=== PATIENT | male | born 1945 | race Caucasian/White ===

== ENCOUNTER 2018-11-29 07:26 | Day surgery (SDC) | payer MEDICARE, OTHER ==
[2018-11-26 13:56] LABS: EOSINOPHILS % (AUTO) 3.6 % (0.0-8.0); HEMATOCRIT 42.5 % (42-54); LYMPHOCYTES % (AUTO) 32.1 % (21.0-51.0); MEAN CORPUSCULAR HGB CONC 33.2 g/dL (32.0-36.0); MEAN CORPUSCULAR VOLUME 96.4 fL (79-99); MONOCYTES % (AUTO) 10.5 % (3.0-13.0); NEUTROPHILS % (AUTO) 52.8 % (40.0-77.0); NUCLEATED RED BLOOD CELLS 0.1 % (0.0-0.19); PLATELET COUNT (AUTO) 217 K/uL (130-400); RED BLOOD CELL COUNT(AUTO) 4.41 MIL/uL (4.50-6.20); WHITE BLOOD COUNT (AUTO) 8.3 K/uL (4.8-10.8)
[2018-11-26 14:08] LABS: POTASSIUM 3.9 mmol/L (3.5-5.1)
[2018-11-26 14:09] LABS: PARTIAL THROMBOPLASTIN TIME 26.7 SEC (26.3-35.5); PROTHROMBIN TIME 10.5 SEC (9.6-11.6)
[2018-11-26 15:01] LABS: BILIRUBIN,URINE Negative (NEGATIVE); COLOR,URINE Yellow (YELLOW); GLUCOSE, URINE (UA) Negative (NEGATIVE); KETONES,URINE Negative (NEGATIVE); LEUKOCYTE ESTERASE ,URINE Negative (NEGATIVE); NITRATE,URINE Negative (NEGATIVE); OCCULT BLOOD,URINE Negative (NEGATIVE); PH,URINE 6.5 (5.0-8.0); PROTEIN,URINE Negative (NEGATIVE); UROBILINOGEN,URINE 0.2 mg/dL (0.2-1.0)
[2018-11-26 15:12] LABS: APPEARANCE,URINE CLEAR (CLEAR)
[2018-11-26 16:06] VITALS: BP 154/77
[2018-11-29] VITALS (10 sets, daily range): BP systolic 116–170; BP diastolic 51–87
[~2018-11-29] VITALS: Ht 171.4 cm; Wt 95.8 kg
[~2018-11-29 07:26] MED LIST: ASPI-1181 PO; CARV12.511 PO; EZET10TA26 PO; IBUP-2353 PO; IBUP200C5 PO; LOSA1TAB54 PO; METF-446 PO; SODIUM CHLORIDE 0.9% 500ML 500 ML IV SCH
[2018-11-29] MEDS ORDERED: SODIUM CHLORIDE 0.9% 1000ML 1,000 ML IV ONE (08:22)
[2018-11-29] MEDS ORDERED: LIDOCAINE HCL-MPF 2% 5ML VIAL ONE (09:20)
[2018-11-29] MEDS ORDERED: HEPARIN SODIUM 1000UNIT/ML 10ML VIAL ONE (09:20)
[2018-11-29] MEDS ORDERED: IOHEXOL 350 MG/ML 100ML INFUS..BTL IV ONE (09:20)
[2018-11-29] MEDS ORDERED: IOHEXOL-350 50ML VIAL IV ONE (09:20)
[2018-11-29] MEDS ORDERED: HYDRALAZINE HCL 20 MG/ML VIAL ONE (09:36)
[2018-11-29] MEDS ORDERED: NITROGLYCERIN 4.1 GM SPRAY TL ONE (09:38)
[2018-11-29] MEDS ORDERED: GLUCAGON 1MG KIT 1 MG ML IM PRN (10:15)
[2018-11-29] MEDS ORDERED: DEXTROSE 50%-WATER 50 ML DISP.SYRIN IV PRN (10:15)
[2018-12-01] MEDS ORDERED: METF-446 PO (12:22)
== END 2018-11-29 14:10 | disposition home or self-care (01) ==
LOC: DAH 07:26
PROVIDERS: ATTEND Internal Medicine Cardiovascular Disease
DX: I25.118 Atherosclerotic heart disease of native coronary artery with other forms of angina pectoris (principal); I10 Essential (primary) hypertension; E11.9 Type 2 diabetes mellitus without complications; E78.5 Hyperlipidemia, unspecified; Z88.8 Allergy status to other drugs, medicaments and biological substances; Z98.890 Other specified postprocedural states; Z79.899 Other long term (current) drug therapy; Z82.49 Family history of ischemic heart disease and other diseases of the circulatory system; Z68.32 Body mass index [BMI] 32.0-32.9, adult; I65.23 Occlusion and stenosis of bilateral carotid arteries
CPT/HCPCS: 36415; 71045; 80048; 81003; 82948 ×2; 85025; 85610; 85730; 93005; 93458; 93880; 94010; A4606; C1760; C1894; J0360; J1644; J3490; J7030; Q9965; Q9967 ×2

== ENCOUNTER 2021-03-25 16:26 | Observation (INO) | payer MEDICARE, OTHER ==
[~2021-03-25] VITALS: Ht 170.2 cm; Wt 92.7 kg
[2021-03-25] VITALS (19 sets, daily range): BP systolic 103–148; BP diastolic 47–82
[~2021-03-25 16:26] MED LIST changes: -ASPI-1181 PO; +ASPI-891 PO; +ATOR20TA65 PO; -EZET10TA26 PO; +EZET10TA48 PO; +FURO20TA6 PO; -IBUP-2353 PO; -IBUP200C5 PO; -LOSA1TAB54 PO; -SODIUM CHLORIDE 0.9% 500ML 500 ML IV SCH; +TRAM50TA4 PO
[2021-03-25 17:15] LABS: BASOPHILS % (AUTO) 0.3 % (0.0-5.0); EOSINOPHILS % (AUTO) 1.2 % (0.0-8.0); HEMATOCRIT 43.6 % (42-54); LYMPHOCYTES % (AUTO) 23.4 % (21.0-51.0); MEAN CORPUSCULAR HEMOGLOBIN 32.7 pg (27.0-33.0); MEAN CORPUSCULAR HGB CONC 33.3 g/dL (32.0-36.0); MEAN CORPUSCULAR VOLUME 98.2 fL (79-99); MONOCYTES % (AUTO) 13.3 % (3.0-13.0); NEUTROPHILS % (AUTO) 61.4 % (40.0-77.0); PLATELET COUNT (AUTO) 190 K/uL (130-400); RED BLOOD CELL COUNT(AUTO) 4.44 MIL/uL (4.50-6.20); RED CELL DISTRIBUTION WIDTH 12.4 % (11.0-15.5); WHITE BLOOD COUNT (AUTO) 11.2 K/uL (4.8-10.8)
[2021-03-25 17:29] LABS: ALBUMIN 3.5 g/dL (3.5-5.0); BILIRUBIN,TOTAL 0.5 mg/dL (0.2-1.0); CREATININE 1.1 mg/dL (0.5-1.5); POTASSIUM 4.4 mmol/L (3.5-5.1)
[2021-03-25] MEDS ORDERED: ZOSYN 3.375GM+NS 50ML 50 ML IV ONE (18:19)
[2021-03-25] MEDS ORDERED: 0.9%NACL 50ML 50 ML IV ONE (18:19)
[2021-03-25 19:33] LABS: APPEARANCE,URINE Clear (CLEAR); BILIRUBIN,URINE Negative (NEGATIVE); COLOR,URINE Yellow (YELLOW); GLUCOSE, URINE (UA) Negative (NEGATIVE); KETONES,URINE Trace mg/dL (NEGATIVE); LEUKOCYTE ESTERASE ,URINE Trace (NEGATIVE); NITRATE,URINE Negative (NEGATIVE); OCCULT BLOOD,URINE Negative (NEGATIVE); PROTEIN,URINE Negative (NEGATIVE); UROBILINOGEN,URINE 0.2 mg/dL (0.2-1.0)
[2021-03-25] MEDS ORDERED: BUPIVACAINE/PF 0.5% 30ML VIAL ONE (19:48)
[2021-03-25] MEDS ORDERED: ONDANSETRON 4MG INJ ONE (20:00)
[2021-03-25] MEDS ORDERED: LIDOCAINE PF 100MG/5ML (2%) SYRINGE 5ML ONE ×2 (20:00→20:42)
[2021-03-25] MEDS ORDERED: SUCCINYLCHOLINE CHLORIDE 20 MG/ML 10 ML VIAL ONE (20:00)
[2021-03-25] MEDS ORDERED: DEXAMETHASONE SOD PHOSPHATE 10MG/ML 1ML VIAL ONE (20:00)
[2021-03-25] MEDS ORDERED: MIDAZOLAM HCL 1 MG/ML 2ML VIAL ONE ×2 (20:00→20:02)
[2021-03-25] MEDS ORDERED: GLYCOPYRROLATE 1 MG/5 ML SYRINGE ONE (20:01)
[2021-03-25] MEDS ORDERED: NEOSTIGMINE 5MG/5ML SYR IV ONE (20:01)
[2021-03-25] MEDS ORDERED: PROPOFOL 10 MG/ML 20ML VIAL IV ONE (20:01)
[2021-03-25] MEDS ORDERED: ROCURONIUM 10MG/1ML SYR 10 MG/ML ML ONE (20:01)
[2021-03-25] MEDS ORDERED: FENTANYL CITRATE PF 50 MCG/1 ML 2ML VIAL ONE (20:01)
[2021-03-25] MEDS ORDERED: MEPERIDINE-PF 25 MG/ML SYG ONE (20:03)
[2021-03-25 20:34] LABS: BACTERIA,URINE None Seen /HPF (None Seen); RBC,URINE None Seen /HPF (0-1); SQUAMOUS EPITHELIAL CELL,UR 0-2 /HPF (0-2); WBC,URINE 0-1 /HPF (0-1)
[2021-03-25] MEDS ORDERED: SUGAMMADEX SODIUM 200 MG/2 ML VIAL IV ONE (20:43)
[2021-03-25] MEDS ORDERED: ACETAMINOPHEN 325 MG TAB PO PRN (20:45)
[2021-03-25] MEDS ORDERED: MORPHINE 2 MG SYG IVP PRN (20:45)
[2021-03-25] MEDS ORDERED: TRAMADOL HCL 50 MG TABLET PO PRN (20:45)
[2021-03-25] MEDS ORDERED: PROMETHAZINE HCL 25 MG/ML 1ML AMPULE IM PRN (20:45)
[2021-03-26 00:42] VITALS: BP 105/50
[2021-03-26] MEDS ORDERED: ZOLPIDEM TARTRATE 5 MG TAB PO PRN (00:45)
[2021-03-26] MEDS ORDERED: LACTULOSE 20 GM/30 ML UDCUP PO PRN (00:45)
[2021-03-26] MEDS ORDERED: GUAIFENESIN-DM 200/20 MG 10 ML PO PRN (00:45)
[2021-03-26] MEDS ORDERED: ONDANSETRON 4MG INJ IV PRN (00:45)
[2021-03-26] MEDS ORDERED: ACETAMINOPHEN 325 MG TAB PO PRN ×2 (00:45)
[2021-03-26] MEDS ORDERED: NITROGLYCERIN 0.4 MG SL TAB SL PRN (00:45)
[2021-03-26] MEDS ORDERED: MORPHINE 2 MG SYG IV PRN (00:45)
[2021-03-26] MEDS ORDERED: HYDROMORPHONE 1 MG INJ IV PRN (00:45)
[2021-03-26 01:42] VITALS: BP 150/86
[2021-03-26] MEDS ORDERED: GLUCAGON 1MG KIT 1 MG ML IM PRN (02:00)
[2021-03-26] MEDS ORDERED: POTASSIUM CHLORIDE 20MEQ/100ML 100 ML IV PRN (02:00)
[2021-03-26] MEDS ORDERED: KCL 20 MEQ ERTAB PO PRN (02:00)
[2021-03-26] MEDS ORDERED: DEXTROSE 50%-WATER 50 ML DISP.SYRIN IV PRN (02:00)
[2021-03-26] MEDS ORDERED: POTASSIUM CHLORIDE 10% ELIXIR 20 MEQ/15 ML UDCUP PO PRN (02:00)
[2021-03-26] MEDS ORDERED: MAGNESIUM 2GM PREMIX 50ML 50 ML IV PRN (02:00)
[2021-03-26] MEDS ORDERED: HYDRALAZINE 20MG/ML VIAL IV PRN (02:00)
[2021-03-26] MEDS: ZOSYN 3.375GM+NS 50ML 50 ML IV SCH ×2 (03:18→15:33)
[2021-03-26] MEDS: 0.9%NACL 1000ML 1,000 ML IV SCH ×2 (03:18→11:50)
[2021-03-26 04:16] VITALS: BP 140/76
[2021-03-26 05:19] LABS: BASOPHILS % (AUTO) 0.2 % (0.0-5.0); HEMATOCRIT 44.4 % (42-54); LYMPHOCYTES % (AUTO) 16.4 % (21.0-51.0); MEAN CORPUSCULAR HEMOGLOBIN 31.6 pg (27.0-33.0); MEAN CORPUSCULAR HGB CONC 32.7 g/dL (32.0-36.0); MEAN CORPUSCULAR VOLUME 96.7 fL (79-99); MONOCYTES % (AUTO) 2.8 % (3.0-13.0); PLATELET COUNT (AUTO) 197 K/uL (130-400); RED BLOOD CELL COUNT(AUTO) 4.59 MIL/uL (4.50-6.20); RED CELL DISTRIBUTION WIDTH 12.2 % (11.0-15.5); WHITE BLOOD COUNT (AUTO) 10.9 K/uL (4.8-10.8)
[2021-03-26 05:39] LABS: ALBUMIN 3.4 g/dL (3.5-5.0); BILIRUBIN,TOTAL 0.4 mg/dL (0.2-1.0); MAGNESIUM 1.9 mg/dL (1.80-2.40); POTASSIUM 4.9 mmol/L (3.5-5.1); TOTAL PROTEIN, SERUM 7.1 g/dL (6.0-8.3)
[2021-03-26] MEDS: INSULIN HUMULIN R 100 UNIT/ML 3ML SQ SCH ×3 (06:09→17:25)
[2021-03-26 08:00] VITALS: BP 147/76
[2021-03-26] MEDS ORDERED: FAMOTIDINE 20MG VIAL IV SCH (09:00)
[2021-03-26] MEDS ORDERED: CARVEDILOL 12.5 MG TABLET PO SCH ×2 (09:00)
[2021-03-26 11:59] VITALS: BP 124/50
[2021-03-26] MEDS ORDERED: POLY119P3 PO (13:56)
[2021-03-26] MEDS ORDERED: PHENAZOPYRIDINE HCL 200 MG TABLET PO SCH (14:00)
[2021-03-26] MEDS ORDERED: TRAMADOL HCL 50 MG TABLET PO PRN (14:00)
[2021-03-26 16:00] VITALS: BP 109/86
[2021-03-26] MEDS ORDERED: PHEN-775 PO (16:30)
[2021-03-26] MEDS ORDERED: ATORVASTATIN 20 MG TABLET PO SCH ×2 (21:00)
[2021-03-26] MEDS ORDERED: METFORMIN HCL 500 MG TABLET PO SCH (21:00)
[2021-03-27] MEDS ORDERED: ASPIRIN 325MG EC TAB PO SCH (09:00)
[2021-03-27] MEDS ORDERED: EZETIMIBE 10 MG TAB PO SCH (09:00)
== END 2021-03-26 18:39 | disposition home or self-care (01) ==
LOC: EDH 16:26 → EDHIP 18:24 → 4BH 21:41
PROVIDERS: ADMIT Internal Medicine; ATTEND Internal Medicine
DX: K35.80 Unspecified acute appendicitis (principal); N39.0 Urinary tract infection, site not specified; I10 Essential (primary) hypertension; E11.9 Type 2 diabetes mellitus without complications; E78.5 Hyperlipidemia, unspecified; K59.00 Constipation, unspecified; K21.9 Gastro-esophageal reflux disease without esophagitis; E78.00 Pure hypercholesterolemia, unspecified; Z87.11 Personal history of peptic ulcer disease; Z79.899 Other long term (current) drug therapy; Z79.82 Long term (current) use of aspirin
CPT/HCPCS: 36415 ×2; 44970; 74176; 80053 ×2; 81001; 82948 ×5; 83690; 83735; 85025 ×2; 88304; 96365; 96366; 96367; 96375; 99284; A4344; A4649 ×5; A4930 ×2; G0168; G0378 ×24; J0330; J1100; J1815 ×2; J2001 ×2; J2175; J2250 ×2; J2405; J2543 ×3; J2704; J2710; J3010; J3475; J3490 ×3; J7030; J7120